=== PATIENT | female | born 1980 | race African-American/Black ===

== ENCOUNTER 2020-04-01 09:36 | Emergency (ER) | payer BC, SELFPAY ==
--- NOTE | ~2020-04-01 | US_ITS ---
EXAMINATION: US pelvic complete w TV EXAM DATE: 04/01/2020 10:33 INDICATION: Pelvic pain, low back pain, hx endometriosis. TECHNIQUE: Pelvic transabdominal and transvaginal sonogram was performed. There are multiple graysca le and Doppler images available for interpretation. There is no prior study for comparison. FINDINGS: Uterus measures 4.5 x 5.3 x 5.6 cmwith at least 3 small fibroids identified. Endometrial s tripe measures 4 mm, within normal limits. There is trace amount of endometrial fluid. There is no fr ee pelvic fluid. Right adnexa: The ovary is not identified. There is no adnexal mass. Reportedly this ovary was resect ed. Left adnexa: The ovary measures 2.7 x 4.9 x 2.4 cm, with anechoic cyst measuring 2.7 cm, the dominant follicle. Ovarian vascular flow confirmed. IMPRESSION: 1. Small fibroids. 2. Trace nonspecific endometrial fluid. Reviewed, dictated and finalized at location A. [employer] SUPERVISOR
--- NOTE | ~2020-04-01 | CT_ITS ---
EXAMINATION: CT abdomen pelvis wo con DATE: 04/01/2020 11:38 INDICATION: Right flank pain. TECHNIQUE: Computed tomography (CT) of the abdomen and pelvis was performed without intravenous contr ast. Automated exposure control and iterative reconstruction technique were employed. The dose-length product was 719.11 mGy-cm. COMPARISON: Ultrasound 04/01/2020 FINDINGS: The visualized portions of the lung bases demonstrate minimal atelectasis. No pleural effus ion. The heart size is normal. No pericardial effusion. The liver, gallbladder, spleen, pancreas, adr enal glands, and kidneys are normal. There is no urolithiasis. There are no dilated loops of bowel. T he appendix is normal. The uterus is enlarged and lobulated, consistent with fibroids. There are no p athologically enlarged lymph nodes. There is no free intraperitoneal fluid. There is mild thoracolumb ar spondylosis. IMPRESSION: 1. Uterine fibroids. Reviewed, dictated and finalized at location A. [employer] TECH[employer]Y ARCHITECT IMPRESSION: 1. Uterine fibroids.
[2020-04-01 09:45] VITALS: BP 149/74; PULSE 103; RESP 14; TEMP 36.7; O2SAT 100
[2020-04-01 09:56] LABS: Basophils Percent Auto 0.3 % (0.2-1.2); Eosinophils Absolute Auto 0.1 K/mm3 (0-0.3); Eosinophils Percent Auto 0.9 % (0-4.4); Hematocrit 39.2 % (37.0-47.0); Hemoglobin 12.7 g/dL (12.0-15.0); Immature Granulocyte Absolute 0.01 K/mm3 (0.00-0.031); Immature Granulocyte Percent A 0.1 % (0-0.5); Lymphocytes Absolute Auto 2.17 K/mm3 (0.9-3.2); Lymphocytes Percent Auto 31.2 % (18.3-44.2); Mean Corpuscular HGB Conc 32.4 g/dl (32-36); Mean Corpuscular Hemoglobin 30.9 pg (26-34); Mean Corpuscular Volume 95.4 fl (80-100); Mean Platelet Volume 9.2 fl (7.4-10.4); Monocytes Absolute Auto 0.9 K/mm3 (0.1-0.6); Monocytes Percent Auto 12.7 % (2.6-8.5); Neutrophils Absolute Auto 3.8 K/mm3 (1.3-6.7); Neutrophils Percent Auto 54.8 % (45.5-73.1); Platelet Count Result 269 k/mm3 (150-375); Red Blood Count 4.11 M/mm3 (4.2-5.4); Red Cell Distribution Width 14.6 % (11.5-14.5)
[2020-04-01 09:58] LABS: Add Urine Microscopic? NO; Appearance Urine Clear (Clear); Bilirubin Urine Negative (Negative); Blood Urine Negative (Negative); Color Urine Straw (Yellow); Glucose Urine UA Negative (Negative); Ketones Urine Negative (Negative); Leukocyte Esterase Ur Negative LEU/UL (Negative); Nitrate Urine Negative (Negative); Protein Urine Negative (Negative); Specific Grav Ur 1.008 (1.001-1.035); Urobilinogen Urine Negative mg/dL (<2.0)
--- NOTE | 2020-04-01 10:02 | ED.ABDPAIN ---
HPI - Abdominal Pain General Chief Complaint: Abdominal Pain Stated Complaint: abd pain Time Seen by Provider: 04/01/20 09:50 Source: patient Mode of arrival: ambulatory Limitations: no limitations History of Present Illness HPI narrative: This is a 39 year old female that presents to the ER for right sided flank/abdominal pain. Reports the pain started in her right flank. It is sharp in nature. Reports the pain then started to radiate around to the front of her abdomen. Reports history of endometriosis and fibroids. Reports she took Aleve with some relief. Denies fever, nausea, vomiting, diarrhea, or dysuria. Related Data Allergies Allergy/AdvReac Type Severity Reaction Status Date / Time No Known Allergies Allergy Verified 03/11/20 11:01 Review of Systems Review of Systems: Narrative: CONSTITUTIONAL: Denies fever GASTROINTESTINAL: Reports abdominal pain. Denies nausea, vomiting, or diarrhea. GENITOURINARY: Denies dysuria or hematuria. All systems reviewed & are unremarkable except as noted in HPI and below PMFSH Past Medical History Medical History (Updated 04/01/20 @ 12:44 by Shefali Stanford PA-C) Anxiety HTN (hypertension) Family History Family History Mother Hypertension Father Asthma Family history of diabetes mellitus in first degree relative Social History Social History Smoking status: Never smoker Second hand tobacco smoke exposure: No Alcohol intake: current Substance use: never Substance use type: does not use Gender identity (if verbalized by the patient): Female Exam Narrative: Exam Narrative: GENERAL: Well-appearing, well-nourished, and in no acute distress. HEAD: Normocephalic, atraumatic. EYES: EOMI. CHEST: Clear to auscultation. No respiratory distress. No wheezes rales or rhonchi HEART: Regular rate and rhythm. No murmur heard. Normal peripheral pulses. ABDOMEN: Soft, nondistended, normal active bowel sounds. Tender to palpation in the RLQ, without guarding. No CVA tenderness EXTREMITIES: Normal range of motion. No edema. SKIN: Warm, dry, no rash. NEURO: No focal deficits. Alert and oriented x3. PSYCH: Normal mood and affect PELVIC: Normal external genitalia. Normal appearing cervix. Small amount of blood in the vaginal vault. No CMT Course Vital Signs Vital signs: Vital Signs Temperature 98.0 F 04/01/20 09:45 Pulse Rate 103 H 04/01/20 09:45 Respiratory Rate 14 04/01/20 09:45 Blood Pressure 149/74 H 04/01/20 09:45 Pulse Oximetry 100 04/01/20 09:45 Temperature 98.0 F 04/01/20 09:45 Pulse Rate 103 H 04/01/20 09:45 Respiratory Rate 14 04/01/20 09:45 Blood Pressure 149/74 H 04/01/20 09:45 Pulse Oximetry 100 04/01/20 09:45 MDM - Abdominal Pain MDM Narrative Medical decision making narrative: Patient presents the emergency department for right flank pain and lower abdominal pain. She is afebrile and nontoxic-appearing. CBC is without leukocytosis. Metabolic panel without concerning findings. UA without evidence of infection. Pelvic ultrasound shows small fibroids and nonspecific trace endometrial fluid. test is negative. CT scan of the abdomen and pelvis is without acute findings. Trichomonas was negative. Chlamydia, gonorrhea in genital culture was. She would not like to be presumptively treated. Patient was updated on case findings. Does report history of endometriosis uterine fibroids. Was instructed to follow-up with her history teacher. She was given warnings to return to the ER Lab Data Attestation: I reviewed the patient's lab results. Result diagrams: 04/01/20 09:49 04/01/20 09:49 Labs: Lab Results 04/01/20 04/01/20 04/01/20 Range/Units 09:49 09:49 09:49 WBC 7.0 (4.5-10.0) K/mm3 RBC 4.11 L (4.2-5.4) M/mm3 Hgb 12.7 (12.0-15.0) g/dL Hct 39.2 (37.0-47.0)
[2020-04-01 10:11] LABS: Alanine Aminotransferase 22 U/L (4-35); Albumin Level 4.6 g/dL (3.5-5.1); Alkaline Phosphatase 86 U/L (38-126); Anion Gap 5 mmol/L (8-16); Aspartate Amino Transferase 28 U/L (14-36); Bilirubin,Total 0.8 mg/dL (0.2-1.3); Blood Urea Nitrogen 10 mg/dL (7-17); Calcium 9.9 mg/dL (8.4-10.2); Carbon Dioxide 31 mmol/L (22-30); Chloride 102 mmol/L (98-107); Estimated CRCL calculation 94 ml/min; Estimated Glomerular Filt Rate > 60; Glucose 87 mg/dL (65-105); Lipase 36 U/L (23-300); Potassium 3.9 mmol/L (3.4-5.0); Sodium 138 mmol/L (137-145)
[2020-04-01 11:30] VITALS: BP 134/66; PULSE 77; RESP 12; O2SAT 99
[2020-04-01 12:56] VITALS: BP 132/70; PULSE 80; RESP 14; O2SAT 99
== END 2020-04-01 12:56 | disposition home or self-care (01) ==
PROVIDERS: Physician Assistant; Emergency Provider Emergency Medicine; Family Provider Emergency Medicine; PCP Family Medicine
DX: D25.9 Leiomyoma of uterus, unspecified (principal); N80.9 Endometriosis, unspecified; I10 Essential (primary) hypertension
CPT/HCPCS: 36415; 74176; 76830; 76856; 80053; 81003; 81025; 83690; 85025; 87070; 87077; 87491; 87591; 87808; 99284

== ENCOUNTER 2021-12-07 11:53 | Outpatient (CLI) | payer BC, SELFPAY ==
--- NOTE | ~2021-12-07 | XR_ITS ---
EXAM: XR cervical spine 4-5V DATE: 12/07/2021 12:13 HISTORY: NO INJURY BILAT WRIST PAIN NUMBNESS FOR 2 YEARS . COMPARISON: None available. FINDINGS: Craniocervical association and atlantoaxial joint are aligned. No prevertebral soft tissue swelling. Trace anterolisthesis at C2-3 and C3-4. Reversed cervical lordosis centered at C4-5. Multi level disc space narrowing and marginal osteophytosis, including bridging anterior osteophytes. The p osterior elements are normal. IMPRESSION: Trace upper cervical anterolistheses. Multilevel degenerative disc disease. Reviewed, dictated and finalized at location K.
== END 2021-12-07 11:54 ==
PROVIDERS: PCP Family Medicine; Visit Provider Plastic Surgery
DX: M47.22 Other spondylosis with radiculopathy, cervical region (principal); M50.30 Other cervical disc degeneration, unspecified cervical region
CPT/HCPCS: 72050

== ENCOUNTER 2022-02-13 09:15 | Outpatient (RCR) | payer BC, SELFPAY ==
[2021-11-23 11:00] VITALS: BMI 35.3
[2021-11-23 13:09] VITALS: BMI 35.3
== END 2022-02-13 11:16 | disposition home or self-care (01) ==
LOC: ANHDMC 09:15
PROVIDERS: PCP Family Medicine; Visit Provider Physician Assistant
DX: E11.9 Type 2 diabetes mellitus without complications (principal); Z71.3 Dietary counseling and surveillance; Z71.89 Other specified counseling
CPT/HCPCS: 97802; G0108

== ENCOUNTER 2024-07-21 13:47 | Outpatient (CLI) | payer OTHER, BC, SELFPAY ==
--- NOTE | ~2024-07-21 | MM_ITS ---
EXAMINATION: MM screening lona BI w blessing HISTORY: Screening TECHNIQUE: Craniocaudal and mediolateral oblique 3-D tomosynthesis images were obtained and synthetic 2-D images were generated. CAD analysis was submitted and interpreted. COMPARISON: No prior mammogram is available for comparison at this institution. BREAST PARENCHYMAL COMPOSITION: Not dense: There are scattered areas of fibroglandular density. FINDINGS: There is no evidence of suspicious mass, calcification, or architectural distortion to sugg est malignancy in either breast. There has been no suspicious interval change. IMPRESSION: 1. No mammographic evidence of malignancy. 2. Recommend routine screening mammography in one year. BI-RADS Category 1: Negative Reviewed, dictated and finalized at location B.
== END 2024-07-21 13:48 | disposition home or self-care (01) ==
LOC: MICIMG 13:49
PROVIDERS: PCP Family Medicine; Visit Provider Obstetrics & Gynecology
DX: Z12.31 Encounter for screening mammogram for malignant neoplasm of breast (principal)
CPT/HCPCS: 77063; 77067